=== PATIENT | female | born 1990 | race Two or more races ===

== ENCOUNTER 2020-10-27 06:16 | Inpatient (IN) | payer OTHER ==
[2020-10-27 08:55] LABS: HCT 40.2 % (37.0-47.0); HGB 13.3 g/dl (12.5-16.0); MCH 29.5 pg (25.0-31.0); MCHC 33.1 g/dL (32.0-36.0); MCV 89.1 fL (78.0-100.0); MPV 11.2 fL (6.0-9.5); RBC 4.51 M/uL (4.20-5.40); RDW 13.2 % (11.5-14.0); WBC 10.4 K/uL (4.0-10.5)
[2020-10-27 08:57] LABS: BILIRUBIN NEGATIVE (NEGATIVE); BLOOD NEGATIVE Ery/uL (NEGATIVE); CLARITY CLEAR (CLEAR); COLOR YELLOW (YELLOW); GLUCOSE (U) TRACE mg/dL (NORMAL); LEUKOCYTES 2+ Leu/uL (NEGATIVE); NITRITE NEGATIVE (NEGATIVE); PROTEIN NEGATIVE (NEGATIVE); UROBILINOGEN 0.2 mg/dL (0.2-1.0)
[2020-10-27 09:08] LABS: BACTERIA TRACE; SQUAMOUS EPITHELIAL CELLS RARE
[2020-10-27 10:19] LABS: ALBUMIN 2.7 g/dL (3.4-5.0); BILIRUBIN - TOTAL 0.3 mg/dL (0.2-1.0); BUN/CREAT RATIO (CALC) 13.5 RATIO; CREATININE 0.37 mg/dL (0.51-0.95); GLOBULIN (CALCULATION) 4.1 g/dL; POTASSIUM 3.7 mmol/L (3.5-5.1); TOTAL PROTEIN 6.8 g/dL (6.4-8.2)
[2020-10-28 06:30] LABS: HCT 31.7 % (37.0-47.0); HGB 10.4 g/dl (12.5-16.0); MCH 30.1 pg (25.0-31.0); MCHC 32.8 g/dL (32.0-36.0); MCV 91.9 fL (78.0-100.0); MPV 11.7 fL (6.0-9.5); RBC 3.45 M/uL (4.20-5.40); RDW 13.4 % (11.5-14.0)
[2020-10-28 06:36] LABS: WBC 18.7 K/uL (4.0-10.5)
--- NOTE | 2020-10-28 16:10 | NUR ---
RECEIVED REFERRAL FOR RESOURCES. THEY ARE NEW PARENTS AND ARE ANXIOUS. THEY DO NOT HAVE ANY FAMILY SUPPORT IN THE [place]. THEY HAVE MOVED HER FROM [place] FOR EMPLOYMENT. THEY RESIDE IN A 2 BEDROOM HOME. IT HAS RUNNING WATER, HEAT/AIR, ELECTRICITY. THEY DO HAVE A BABY BED, CAR SEAT, CLOTHING, DIAPERS ETC FOR THE BABY. THEY ARE INTERESTED IN THE HANDS PROGRAM, REFERRAL MADE. BOTH PARENTS ARE COLLEGE GRADUATES. RESOURCE INFORMATION GIVEN REGARDING WIC, HANDS, FOOD STAMPS. AND COMMUNITY RESOURCES, FOOD ESTRADA, ETC PHONE NUMBERS GIVEN FOR NURSES'S STATION WELL THIS COAL OR ORE CONTROLLER IF ANY ADDITIONAL QUESTIONS WHILE STILL IN THE HOSPITAL. [employer] DO NOT VOICE ANY CONERNS, THEY ARE APPROPRIATE AND ARE BONDING WITH THE BABY. PARENTS REPORT NO HISTORY OF ABUSE, PHYSICAL OR DRUG. NO HISTORY OF SMOKING. NO MENTAL HEALTH HISTORY.
== END 2020-10-29 23:59 | disposition home or self-care (01) | DRG 806 ==
LOC: FOD 06:16 → FOB 06:34 → FOD 07:23 → FOB 07:24
PROVIDERS: ADMIT Obstetrics & Gynecology
PROC: 10E0XZZ Delivery of Products of Conception, External Approach (ICD-10-PCS; principal; 2020-10-27)
PROC: 0KQM0ZZ Repair Perineum Muscle, Open Approach (ICD-10-PCS; 2020-10-27)
PROC: 4A1HX4Z Monitoring of Products of Conception, Cardiac Electrical Activity, External Approach (ICD-10-PCS; 2020-10-27)
PROC: 0UQMXZZ Repair Vulva, External Approach (ICD-10-PCS; 2020-10-27)
DX: O99.284 Endocrine, nutritional and metabolic diseases complicating childbirth (principal); D62 Acute posthemorrhagic anemia; Z37.0 Single live birth; E03.9 Hypothyroidism, unspecified; O70.1 Second degree perineal laceration during delivery; O69.1XX0 Labor and delivery complicated by cord around neck, with compression, not applicable or unspecified; O24.420 Gestational diabetes mellitus in childbirth, diet controlled; Z3A.39 39 weeks gestation of pregnancy; O71.82 Other specified trauma to perineum and vulva; O90.81 Anemia of the puerperium; Z79.899 Other long term (current) drug therapy
CPT/HCPCS: 36415; 80053; 81001; 82009; 82947; 82962; J2795; J7120; J7121; U0002